=== PATIENT | female | born 1985 | race Caucasian/White ===

== ENCOUNTER 2020-05-09 02:02 | Inpatient (IN) | payer OTHER, SELFPAY ==
[2020-05-09] VITALS (41 sets, daily range): BP systolic 105–131; BP diastolic 46–81; PULSE 53–111; RESP 18; TEMP 36.4–37.2; O2SAT 98–100; BMI 29.7
[2020-05-09 02:41] LABS: Basophils Percent Auto 0.3 % (0.2-1.2); Eosinophils Absolute Auto 0.1 K/mm3 (0-0.3); Eosinophils Percent Auto 0.5 % (0-4.4); Hematocrit 28.8 % (37.0-47.0); Hemoglobin 10.1 g/dL (12.0-15.0); Immature Granulocyte Absolute 0.06 K/mm3 (0.00-0.031); Immature Granulocyte Percent A 0.6 % (0-0.5); Lymphocytes Absolute Auto 1.95 K/mm3 (0.9-3.2); Lymphocytes Percent Auto 20.3 % (18.3-44.2); Mean Corpuscular HGB Conc 35.1 g/dl (32-36); Mean Corpuscular Hemoglobin 32.9 pg (26-34); Mean Corpuscular Volume 93.8 fl (80-100); Mean Platelet Volume 9.4 fl (7.4-10.4); Monocytes Absolute Auto 0.6 K/mm3 (0.1-0.6); Monocytes Percent Auto 6.1 % (2.6-8.5); Neutrophils Absolute Auto 6.9 K/mm3 (1.3-6.7); Neutrophils Percent Auto 72.2 % (45.5-73.1); Platelet Count Result 283 k/mm3 (150-375); Red Blood Count 3.07 M/mm3 (4.2-5.4); Red Cell Distribution Width 13.1 % (11.5-14.5); White Blood Count 9.6 K/mm3 (4.5-10.0)
[2020-05-09] MEDS: LACTATED RINGERS 1,000 ML 125 ML IV CONT ×2 (02:42→03:36)
[2020-05-09] MEDS: AMPICILLIN 2 GM/NS 100 ML 2 GM/100 ML BAG IVPB (02:42)
--- NOTE | 2020-05-09 03:17 | WPDANESEPP ---
Anes - Eval Pre Procedure Procedure: Labor epidural Date/Time: 05/09/20 03:17 Surgeon: Maureen Preop Diagnosis: Abd pain with contractions Pre Op Diagnosis: Contractions Patient Data Age: 34 Gender: F Height: 5 ft 3 in Weight: 76 kg Last Vital Signs Pulse 82 05/09/20 03:16 BP 121/66 05/09/20 03:16 Pulse Ox 98 05/09/20 03:17 Allergies Allergy/AdvReac Type Severity Reaction Status Date / Time ziprasidone Allergy Intermediate Swelling Verified 04/20/19 12:33 of Lip/Tongue/Throat Home Medications Medication Instructions Recorded Confirmed Type albuterol sulfate [Proventil HFA] 2 puff INHALATION QIDRT PRN 30 04/18/19 05/09/20 Rx Days gm buprenorphine HCl [Subutex] 16 mg SUBLINGUAL BID 05/09/20 05/09/20 History Laboratory Tests 05/09/20 05/09/20 05/09/20 02:33 02:33 02:33 WBC 9.6 K/mm3 K/mm3 (4.5-10.0) RBC 3.07 M/mm3 L M/mm3 (4.2-5.4) Hgb 10.1 g/dL L g/dL (12.0-15.0) Hct 28.8 % L % (37.0-47.0) MCV 93.8 fl fl (80-100) MCH 32.9 pg pg (26-34) MCHC 35.1 g/dl g/dl (32-36) RDW 13.1 % % (11.5-14.5) Plt Count 283 k/mm3 k/mm3 (150-375) MPV 9.4 fl fl (7.4-10.4) Immature Gran % (Auto) 0.6 % H % (0-0.5) Neut % (Auto) 72.2 % % (45.5-73.1) Lymph % (Auto) 20.3 % % (18.3-44.2) [place] % (Auto) 6.1 % % (2.6-8.5) Eos % (Auto) 0.5 % % (0-4.4) Baso % (Auto) 0.3 % % (0.2-1.2) Lymph # (Auto) 1.95 K/mm3 K/mm3 (0.9-3.2) [place] # (Auto) 0.6 K/mm3 K/mm3 (0.1-0.6) Eos # (Auto) 0.1 K/mm3 K/mm3 (0-0.3) Baso # (Auto) 0.0 K/mm3 K/mm3 (0.0-0.1) Abs Immat Gran (auto) 0.06 K/mm3 H K/mm3 (0.00-0.031) Absolute Neuts (auto) 6.9 K/mm3 H K/mm3 (1.3-6.7) Absolute Nucleated RBC 0.0 K/mm3 K/mm3 (0.0-0.012) Nucleated RBC % 0.0 % % (0.0-0.2) RPR Pending Hep Bs Antigen HIV 1&2 Ab/P24 Ag 4thGn Pending Rubella IgG Antibody 05/09/20 05/09/20 02:33 02:33 WBC RBC Hgb Hct MCV MCH MCHC RDW Plt Count MPV Immature Gran % (Auto) Neut % (Auto) Lymph % (Auto) [place] % (Auto) Eos % (Auto) Baso % (Auto) Lymph # (Auto) [place] # (Auto) Eos # (Auto) Baso # (Auto) Abs Immat Gran (auto) Absolute Neuts (auto) Absolute Nucleated RBC Nucleated RBC % RPR Hep Bs Antigen Pending HIV 1&2 Ab/P24 Ag 4thGn Rubella IgG Antibody Pending Patient hx anesthesia problems: none Family hx anesthesia problems: none PMFSH Past Medical History Medical History Asthma Drug abuse Hepatitis C Heroin abuse Smoker Social History Social History Smoking packs per day: 1 Smoking cigarettes per day: 20.0 Years smoked: 20 Smoking pack-years: 20.00 Smoking status: Current every day smoker Tobacco type: cigarettes Second hand tobacco smoke exposure: Yes Substance use: current Other substance usage details: user for 10 years Gender identity (if verbalized by the patient): Female Spiritual care concerns: No Exam Day of Procedure 05/09/20 03:17 Patient weight: overweight Heart: regular rate and rhythm Airway: Mallampati scale class III and other (poor dentition throughout) Neurological: alert and oriented
--- NOTE | 2020-05-09 03:23 | LDADM ---
This patient, Chela Fischer, was admitted to Labor/Delivery/Recovery 108 on 05/09/20 at 02:17. Plans for labor, pain management and were discussed with patient. Patient/family oriented to hospital policies and general routines including ID bracelet, bed and alarms, visiting hours, pain management, procedures, bathroom and other care routines, personal items, smoking policy, room service/diet and guest tray routines, infant security routines, and visiting hours. Patient/Family are encouraged to report perceived risks to care and to ask questions if they do not understand what they are told or what they should do. See OBIX for further documentation.
[2020-05-09] MEDS: OXYTOCIN 30 UNITS/NS 500 ML 30 UNITS/500 ML BAG 999 UNITS IV CONT (04:00)
--- NOTE | 2020-05-09 04:15 | WPDHPUPDATE1 ---
History and Physical Update Update Date/Time: 05/09/20 04:15 History and Physical has been reviewed, including an updated exam of the patient. There are NO changes in the patient's condition. Risks, benefits, and alternatives have been discussed and questions answered. Patient agrees to proceed with procedure.
--- NOTE | 2020-05-09 04:15 | WPDOBADMIT ---
Obstetrics - Admit Note Admission Note: record reviewed. No pertinent additions to the history and/or any subsequent changes in the physical findings that are not consistent with the expected course of the were found. Additions to the history and/or subsequent changes in the physical findings foll 34-year-old 0 para 303 now 4 female presents as a walk-in patient. She is receiving care from [place] due to drug use and Subutex to medication. Records have been obtained. Presents with ruptured membranes early labor at 36 weeks. Will labor patient initiate GBS protocol. Pediatrics will be at the delivery due to history of drug use. Further plan based on obstetrical indications. None.
--- NOTE | 2020-05-09 04:18 | PM.OBPRVD ---
OB - Delivery Note Procedure events: Labor < 37 Weeks and Meconium Stained Fluid Route of delivery: Episiotomy description: None Laceration Description: None Specimen: Yes Estimated blood loss (mL): 100 Anesthesia type: Epidural Disposition: floor Narrative: Patient prepped and draped. Delivery without difficulty with pediatrics in attendance. Placenta delivered spontaneously and intact. Cervix vagina vulva were inspected with no lacerations or tears. Uterus was well contracted and not bleeding. Baby Weeks of gestation at delivery: 36 Infant gender: Male Weight (pounds): 6 Weight (ounces): 6
[2020-05-09 04:31] LABS: Hepatitis B Surface Antigen Negative (Negative)
[2020-05-09 04:35] LABS: Amphetamine Screen Urine Negative (Negative); Barbiturate Screen Urine Negative (Negative); Benzodiazepines Screen Urine Negative (Negative); Cannabinoid Screen Urine Negative (Negative); Cocaine Screen Urine Negative (Negative); Methadone Screen Urine Negative (Negative); Opiate Screen Urine Negative (Negative); Phencyclidine Screen Urine Negative (Negative)
[2020-05-09] MEDS: OXYTOCIN 30 UNITS/NS 500 ML 30 UNITS/500 ML BAG 125 UNITS IV CONT (04:37)
[2020-05-09 04:41] LABS: Rubella IgG Antibody 29.3 IU/ML
[2020-05-09 05:30] LABS: HIV 1/2 Ab P24 Ag Result Negative (Negative)
[2020-05-09 07:02] LABS: Rapid Plasma Reagin Non-Reactive (NonReactive)
--- NOTE | 2020-05-09 07:50 | PC.NURSE ---
Patient transferred to post room #292 via wheelchair from labor and delivery. Oriented to unit, room, information board, rooming in, admission packet and security measures. Patient verbalizes understanding.
[2020-05-09] MEDS: IBUPROFEN 600 MG TABLET PO (14:06)
--- NOTE | 2020-05-09 14:18 | PCCCNOTE ---
Care Coordination Consult Met with pt. and KEE Adams. This is pt. and Bryan's fourth child. They have a 7 year old, 3 year old, and 1 year old. Per pt. other children are being cared for by her mother, Faby. Pt. and Bryan report they are just visiting the area. However they also report they are thinking of relocating here at discharge. Pt. is aware she tested negative for all substances upon admission. Pt. reports a long history of heroin use. Denies any current use at this time. Reports she has been taking Subutex and getting care through [facility]. Per nursing records are on chart. Baby boy was transferred to [facility] in [place]. Call to [employer] Delivery Driver Marta Maya @ [phone] who is aware of above information. Pt. does report past [facility] history but declines any open cases at this time. An online report was submitted to [facility] with report # [id number].
--- NOTE | 2020-05-09 17:00 | PC.NURSE ---
Patient off the unit frequently today because she went outside to smoke. Patient aware that should she feel lightheaded or dizzy she needs to return to her room and alert the RN.
[2020-05-10 05:26] LABS: Hematocrit 26.3 % (37.0-47.0); Hemoglobin 8.8 g/dL (12.0-15.0)
--- NOTE | 2020-05-10 07:30 | P.DS_ITS ---
DS: Admitting Diagnosis Admitting Diagnosis Admitting Diagnosis: Contractions OB - DS: Summary OB Procedures : None OB Procedures Intrapartum: Spontaneous Vag Delivery OB Procedures: : None Time Spent with Patient Time attestation: Total time spent providing and/or coordinating discharge services: DS: Data Data Completed and Pending Labs on day of discharge: Labs from last 24 hours 05/10/20 04:14 Hgb 8.8 L Hct 26.3 L Discharge Plan Discharge Discharging Clinician: Leon Reddy Patient Disposition: Home, Self-Care Activity: as tolerated Diet: as tolerated Patient Instructions: Antibiotic Form, How to Stop Smoking (DC) Stand Alone Forms: General Discharge Information Follow-up/Referrals: Leon Reddy MD [Physician] - 3 Weeks Discharge Medications: New ibuprofen 600 mg Tablet 600 mg PO Q6H PRN (Reason: Cramping) Qty: 20 RF: 0 Continued albuterol sulfate [Proventil HFA] 90 mcg/actuation Hfa Aerosol Inhaler 2 puff inhalation QIDRT PRN (Reason: Shortness Of Breath) 30 Days RF: 0 buprenorphine HCl [Subutex] 8 mg Tablet, Sublingual 16 mg SUBLINGUAL BID RF: 0 Date of admission: 05/09/20 02:17 Primary Care Provider: PHYSICIAN,MEDICAL PROGRAM SPECIALIST Admitting Provider: Leon Reddy Attending physician on admission: Leon Reddy Condition: Stable
[2020-05-10 07:55] VITALS: BP 118/71; PULSE 55; RESP 18; TEMP 37.1; O2SAT 100
--- NOTE | 2020-05-10 11:09 | WPDANLDPN2 ---
Anes-Prog Note L&D Date/Time: 05/10/20 11:09 Comfortable throughout: labor and delivery Neuraxial method: epidural Epidural/Spinal procedure site: clean & non-tender Neuro status: Neuro function grossly intact. Cardiovascular status: normal Respiratory status: normal Airway patency: baseline Mental status: baseline Post-Op hydration status: normal Vital Signs: Last Vital Signs Temp 36.5 C 05/09/20 20:00 Pulse 57 L 05/09/20 20:00 Resp 18 05/09/20 20:00 BP 105/60 05/09/20 20:00 Pulse Ox 100 05/09/20 20:00 Pain score (VAS): 3 Post-procedural complaints: none Patient feedback: Patient satisfied with anesthetic care.
[2020-05-10] MEDS: POLYSACCHARIDE IRON COMPLEX 150 MG CAPSULE PO (11:48)
[2020-05-10] MEDS: IBUPROFEN 600 MG TABLET PO (11:49)
== END 2020-05-10 14:35 | disposition home or self-care (01) | DRG 560 ==
LOC: ANHLDR 03:19 → ANHOB2 08:04
PROVIDERS: Admitting Provider Obstetrics & Gynecology; Visit Provider Obstetrics & Gynecology
DX: O62.3 Precipitate labor (principal); Z37.0 Single live birth; Z3A.36 36 weeks gestation of pregnancy; O60.14X0 Preterm labor third trimester with preterm delivery third trimester, not applicable or unspecified; O99.52 Diseases of the respiratory system complicating childbirth; J45.909 Unspecified asthma, uncomplicated; O77.0 Labor and delivery complicated by meconium in amniotic fluid; F17.210 Nicotine dependence, cigarettes, uncomplicated; O98.52 Other viral diseases complicating childbirth; B19.20 Unspecified viral hepatitis C without hepatic coma; O99.334 Smoking (tobacco) complicating childbirth; O69.81X0 Labor and delivery complicated by cord around neck, without compression, not applicable or unspecified
CPT/HCPCS: 36415; 80307; 84112; 85014; 85018; 85025; 86592; 86703; 86762; 86850; 86900; 86901; 87340; A9270; G0432; J0290; J2590; J2795; J7120

== ENCOUNTER 2020-05-18 12:45 | Emergency (ER) | payer OTHER, SELFPAY ==
[2020-05-18 12:49] VITALS: BP 121/74; PULSE 97; RESP 17; TEMP 36.3; O2SAT 93
--- NOTE | 2020-05-18 13:36 | ED.GENADULT ---
HPI - General Adult General Chief complaint: Unspecified Stated complaint: Possible Bladder Prolapse, Tooth Pain Time Seen by Provider: 05/18/20 12:57 Source: patient Mode of arrival: ambulatory Limitations: no limitations History of Present Illness HPI narrative: This is a 34 year old female that presents to the ER for possible prolapse. Reports she coughed and suddenly felt a bulge in her vulva. Reports pain to the area. She recently had a vaginal delivery with Dr. Reddy about a week ago. Also reports some irritation on the inside of her mouth on the right side that she noted today. Denies fever, abdominal pain or dysuria. Related Data Home Medications Medication Instructions Recorded Confirmed buprenorphine HCl 16 mg SUBLINGUAL BID 05/09/20 05/09/20 Allergies Allergy/AdvReac Type Severity Reaction Status Date / Time ziprasidone Allergy Intermediate Swelling Verified 05/18/20 12:52 of Lip/Tongue/Throat Review of Systems Review of Systems: Narrative: CONSTITUTIONAL: Denies fever GASTROINTESTINAL: Denies abdominal pain, nausea, vomiting GENITOURINARY: Denies dysuria All systems reviewed & are unremarkable except as noted in HPI and below PMFSH Past Medical History Medical History Asthma Drug abuse Hepatitis C Heroin abuse Smoker Social History Social History Smoking packs per day: 1 Smoking cigarettes per day: 20.0 Years smoked: 20 Smoking pack-years: 20.00 Smoking status: Current every day smoker Tobacco type: cigarettes Second hand tobacco smoke exposure: Yes Substance use: former Other substance usage details: user for 10 years Gender identity (if verbalized by the patient): Female Spiritual care concerns: No Exam Narrative: Exam Narrative: GENERAL: Well-appearing, well-nourished, and in no acute distress. HEAD: Normocephalic, atraumatic. EYES: EOMI. ENT: Inside of right cheek with mild irritation, appears patient may have bitten the area, no erythema or fluctuance to suggest infection CHEST: Clear to auscultation. No respiratory distress. No wheezes rales or rhonchi HEART: Regular rate and rhythm. No murmur heard. Normal peripheral pulses. ABDOMEN: Soft, nontender, nondistended, normal active bowel sounds. EXTREMITIES: Normal range of motion. No edema. SKIN: Warm, dry, no rash. NEURO: No focal deficits. Alert and oriented x3. PSYCH: Normal mood and affect PELVIC: Right side of vulva with large hematoma. Small to moderate amount of blood in the vaginal vault, cervix appears normal postdelivery Course Vital Signs Vital signs: Vital Signs Temperature 97.4 F L 05/18/20 12:49 Pulse Rate 97 05/18/20 12:49 Respiratory Rate 17 05/18/20 12:49 Blood Pressure 121/74 05/18/20 12:49 Pulse Oximetry 93 05/18/20 12:49 Temperature 97.4 F L 05/18/20 12:49 Pulse Rate 97 05/18/20 12:49 Respiratory Rate 17 05/18/20 12:49 Blood Pressure 121/74 05/18/20 12:49 Pulse Oximetry 93 05/18/20 12:49 Medical Decision Making MDM Narrative Medical decision making narrative: Patient presents to the emergency department for swelling of the vulva. On exam consistent with a hematoma. Patient was a difficult stick and multiple attempts to draw blood were done. Patient ended up eloping after I evaluated her before any further work-up was done Vital Signs Vital Signs: Vital Signs Temperature 97.4 F L 05/18/20 12:49 Pulse Rate 97 05/18/20 12:49 Respiratory Rate 17 05/18/20 12:49 Blood Pressure 121/74 05/18/20 12:49 Pulse Oximetry 93 05/18/20 12:49 Temperature 97.4 F L 05/18/20 12:49 Pulse Rate 97 05/18/20 12:49 Respiratory Rate 17 05/18/20 12:49 Blood Pressure 121/74 05/18/20 12:49 Pulse Oximetry 93 05/18/20 12:49 Critical Care Time Critical Care Time Critical Care Time: No Discharge Plan Discharge Clinical Impression: Hematoma, vulva Marie
--- NOTE | 2020-05-18 14:20 | PC.NURSE ---
patient brought back to ED room 10 with c/o bladder prolapse . see triage note. no change in patient's condition since triage completed. assessments documented. provider has seen patient. Dr. Martin also in room for exam. this RN present. patient had vaginal 1 week ago. states her baby was 3 weeks premature and is hospitalized at [facility]. alert. oriented. denies vaginal bleeding. waiting for further orders from provider. call light in reach. denies needs.
--- NOTE | 2020-05-18 15:15 | PC.NURSE ---
patient is difficult stick. ED techs unable to draw labs. this RN to bedside. attempt x 2 for labs or IV access. unable to advance catheters due to scar tissue in arms. patient aware of orders and treatment plan. will discuss with charge nurse or for ultrasound IV. resting on stretcher. denies needs. denies pain.
--- NOTE | 2020-05-18 15:50 | PC.NURSE ---
mineral surveying technician at bedside. unable to get labs. discussed with Jay SERRATO.
--- NOTE | 2020-05-18 16:05 | PC.NURSE ---
patient seen leaving this ED by broadcast operations technician. patient did not have IV access.
== END 2020-05-18 16:26 | disposition left against medical advice (07) ==
PROVIDERS: Emergency Provider Emergency Medicine; Referring Provider Family Medicine
DX: S30.23XA Contusion of vagina and vulva, initial encounter (principal); X50.0XXA Overexertion from strenuous movement or load, initial encounter; F17.210 Nicotine dependence, cigarettes, uncomplicated; J45.909 Unspecified asthma, uncomplicated
CPT/HCPCS: 99281

== ENCOUNTER 2021-11-10 06:12 | Inpatient (IN) | payer OTHER, SELFPAY ==
[2021-11-10] VITALS (17 sets, daily range): BP systolic 108–131; BP diastolic 53–81; PULSE 51–79; RESP 16–18; TEMP 36.4–37; O2SAT 97–100
--- NOTE | 2021-11-10 06:12 | LDADM ---
This patient, Chela Fischer, was admitted to Labor/Delivery/Recovery 106 on 11/10/21 at 06:12. Plans for labor, pain management and were discussed with patient. Patient/family oriented to hospital policies and general routines including ID bracelet, bed and alarms, visiting hours, pain management, procedures, bathroom and other care routines, personal items, smoking policy, room service/diet and guest tray routines, infant security routines, and visiting hours. Patient/Family are encouraged to report perceived risks to care and to ask questions if they do not understand what they are told or what they should do. See OBIX for further documentation.
[2021-11-10] MEDS: OXYTOCIN 10 UNITS/ML VIAL (06:23)
--- NOTE | 2021-11-10 06:52 | PM.IMHP ---
H&P: HPI History of Present Illness Date/Time: 11/10/21 06:52 Chief Complaint: intrauterine no care opioid druge abuse hepatitis C Narrative: 36 yo who presents in labor. Pt had no care in this . Upon arrival to the hospital she was found to be complete and breech. Pt is unknown gestational age. Pt precipitously delivered a male infant in footling position. Pt states her last opioid use was a few days ago. Pt is unaware what month it is currently. Pt also was a poor historian of her medical history. Pt reports a history of IVDU but states she stopped using a while ago as she could no longer find any veins. Pt also contracted Hepatitis C. Pt cannot recall the last time she saw a medical provider. PMFSH Past Medical History Medical History Asthma Drug abuse Hepatitis C Heroin abuse Smoker Social History Social History Smoking packs per day: 1 Smoking cigarettes per day: 20.0 Years smoked: 20 Smoking pack-years: 20.00 Smoking status: Current every day smoker Tobacco type: cigarettes Second hand tobacco smoke exposure: Yes Substance use: former Other substance usage details: user for 10 years Gender identity (if verbalized by the patient): Female Spiritual care concerns: No Meds Home Medications and Allergies Home Medications Medication Instructions Recorded Confirmed Type albuterol sulfate 90 mcg/actuation 2 puff inhalation QIDRT PRN 04/18/19 05/09/20 Rx aerosol inhaler (Proventil HFA) Shortness Of Breath 30 days buprenorphine HCl 8 mg sublingual 16 mg sublingual BID 05/09/20 05/09/20 History tablet ibuprofen 600 mg tablet 600 mg PO Q6H PRN Cramping #20 tabs 05/10/20 Rx Allergies Allergy/AdvReac Type Severity Reaction Status Date / Time ziprasidone Allergy Intermediate Swelling Verified 05/18/20 12:52 of Lip/Tongue/Throat Exam Const: General: no acute distress, confusion, intoxicated appearing, lethargic and poor hygiene Nutritional Appearance: malnourished Limitations: other limitations (Opioid use) Resp: Effort & Inspection: normal respiratory effort and able to speak in complete sentences Cardio: Rate: regular rate GI: Inspection: scar and striae : OB/external & speculum: external exam normal and vaginal laceration (superficial vaginal lacerations) Other: Pt was s/p precipitous delivery. Pt had delivered the placenta. No active bleeding noted. No perineal lacerations Skin: General skin exam: scars and striae Lesions: lesion noted (multiple skin lesions noted from active drug use) Neuro: General: No oriented to time Cognition (Neuro): abnormal cognition Extrem: General: capillary refill delayed, clubbing, edema, pedal edema and No vascular access Psych: Appearance: poorly kempt Assessment and Plan Assessment and plan (1) Heroin abuse: Code(s): F11.10 - Opioid abuse, uncomplicated Status: Acute Assessment and Plan: pt reports last opioid use was a few days ago. She cannot recall the specific day. Pt is unaware what day it is or what month (2) Hepatitis C: Code(s): B19.20 - Unspecified viral hepatitis C without hepatic coma Status: Chronic Assessment and Plan: pt reports history of hepatitis C will draw hepatitis panel will check Hepatitic C viral load and liver enzymes (3) Asthma: Code(s): J45.909 - Unspecified asthma, uncomplicated Status: Chronic (4) Supervision of high risk due to social problems: Code(s): O09.70 - Supervision of high risk due to social problems, unspecified trimester Status: Acute Assessment and Plan: No care Pt is a will draw labs Pt precipitously delivered in footling breech position to a term appearing male infant
[2021-11-10 06:53] LABS: Basophils Percent Auto 0.3 % (0.2-1.2); Eosinophils Absolute Auto 0.1 K/mm3 (0-0.3); Eosinophils Percent Auto 1.1 % (0-4.4); Hematocrit 34.6 % (37.0-47.0); Hemoglobin 11.3 g/dL (12.0-15.0); Immature Granulocyte Absolute 0.04 K/mm3 (0.00-0.031); Immature Granulocyte Percent A 0.5 % (0-0.5); Lymphocytes Absolute Auto 2.03 K/mm3 (0.9-3.2); Lymphocytes Percent Auto 25.9 % (18.3-44.2); Mean Corpuscular HGB Conc 32.7 g/dl (32-36); Mean Corpuscular Volume 91.8 fl (80-100); Mean Platelet Volume 10.2 fl (7.4-10.4); Monocytes Absolute Auto 0.7 K/mm3 (0.1-0.6); Monocytes Percent Auto 8.6 % (2.6-8.5); Neutrophils Percent Auto 63.6 % (45.5-73.1); Platelet Count Result 256 k/mm3 (150-375); Red Blood Count 3.77 M/mm3 (4.2-5.4); Red Cell Distribution Width 12.3 % (11.5-14.5); White Blood Count 7.8 K/mm3 (4.5-10.0)
[2021-11-10] MEDS: OXYTOCIN 30 UNITS/NS 500 ML 30 UNITS/500 ML BAG 125 UNITS IV CONT (07:41)
[2021-11-10] MEDS: IBUPROFEN 600 MG TABLET PO (08:32)
[2021-11-10 08:35] LABS: Rubella IgG Antibody 37.9 IU/ML
[2021-11-10 08:40] LABS: HIV 1/2 Ab P24 Ag Result Negative (Negative)
[2021-11-10 09:44] LABS: Hepatitis B Surface Antigen Negative (Negative)
[2021-11-10 10:49] LABS: Amphetamine Screen Urine Negative (Negative); Barbiturate Screen Urine Negative (Negative); Benzodiazepines Screen Urine Positive (Negative); Cannabinoid Screen Urine Negative (Negative); Cocaine Screen Urine Negative (Negative); Methadone Screen Urine Negative (Negative); Opiate Screen Urine Negative (Negative); Phencyclidine Screen Urine Negative (Negative)
--- NOTE | 2021-11-10 14:13 | PCCCNOTE ---
Addendum entered by Shannon Pugh, [facility] 11/11/21 08:06: Spoke to RN. Pt. likely discharge today. Spoke to [facility] worker, Judy at [phone]. She will be present today to provide needed paperwork for protective custody of . [place] will likely not discharge today. Addendum entered by Tarah Magallon, [facility] 11/10/21 15:55: Spoke with Vi from [facility] Ra [phone] who reports Judy with [facility] [phone] will be here at [place] in 10 minutes to see mom and baby. Vi states they do plan to take custody of the baby. ROJELIO Guzmán aware. Addendum entered by Tarah Magallon, [facility] 11/10/21 15:23: Recvd email from [facility] that states: Thank you for submitting an online report (reference number [id number]) to the [facility] Child Abuse/Neglect Hotline. Your information has been reviewed and assessed by a Clerical Stock Inspector. A child abuse/neglect investigation will be initiated as a result of the information you provided. An Surgical Nurse Practitioner will make an attempt to see and assess the child(shelby) within the next 24 hours. ROJELIO Guzmán aware. Original Note: Care Coordination: Pt. tested positive for benzo's during urine drug screen. Pt. reports history of IV drug use. Baby's meconium/umbilical cord drug screen is pending. Baby is being monitored for any withdrawal symptoms. ROJELIO Guzmán reports no signs of withdrawal as of now. Pt. states she has had no care during this and arrived to the hospital within 20 minutes of baby being delivered by a nurse. Pt. reports having prior involvement with [facility] and states she has four other children who she does not have custody of. Pt's spouse/FOB Bryan at bedside. Pt. reports she is aware she likely won't leave the hospital with this baby. Online [facility] report made #[id number].
--- NOTE | 2021-11-10 14:42 | PM.OBPNVD ---
OB - PN: Subj Subjective Date/time seen: 11/10/21 14:42 Narrative: Pt is PPD from of suspected term baby in breech position. Pt has no care and is an active opioid user. Pt also has Hepatitis C. Pt desires permanent sterilization. Pt has signed permanent sterilization consent paperwork but the procedure cannot be completed until 72 hrs. Counseled pt on IUD placement for contraception as patient is a risk for non-compliance. Pt consented to placement of IUD. OB - PN: Obj Data Labs CBC & Chem 7: 11/10/21 06:44 Labs: Laboratory Results - last 24 hr 11/10/21 11/10/21 11/10/21 06:44 07:34 07:34 WBC 7.8 RBC 3.77 L Hgb 11.3 L Hct 34.6 L MCV 91.8 MCH 30.0 MCHC 32.7 RDW 12.3 Plt Count 256 MPV 10.2 Immature Gran % (Auto) 0.5 Neut % (Auto) 63.6 Lymph % (Auto) 25.9 [place] % (Auto) 8.6 H Eos % (Auto) 1.1 Baso % (Auto) 0.3 Lymph # (Auto) 2.03 [place] # (Auto) 0.7 H Eos # (Auto) 0.1 Baso # (Auto) 0.0 Abs Immat Gran (auto) 0.04 H Absolute Neuts (auto) 5.0 Absolute Nucleated RBC 0.0 Nucleated RBC % 0.0 Urine Opiates Screen Urine Methadone Screen Ur Barbiturates Screen Ur Phencyclidine Scrn Ur Amphetamine Screen U Benzodiazepines Scrn Urine Cocaine Screen U Cannabinoids Screen Hep Bs Antigen HIV 1&2 Ab/P24 Ag 4thGn Rubella IgG Antibody 37.9 Blood Type O Positive Antibody Screen Negative 11/10/21 11/10/21 11/10/21 07:34 07:34 10:02 WBC RBC Hgb Hct MCV MCH MCHC RDW Plt Count MPV Immature Gran % (Auto) Neut % (Auto) Lymph % (Auto) [place] % (Auto) Eos % (Auto) Baso % (Auto) Lymph # (Auto) [place] # (Auto) Eos # (Auto) Baso # (Auto) Abs Immat Gran (auto) Absolute Neuts (auto) Absolute Nucleated RBC Nucleated RBC % Urine Opiates Screen Negative Urine Methadone Screen Negative Ur Barbiturates Screen Negative Ur Phencyclidine Scrn Negative Ur Amphetamine Screen Negative U Benzodiazepines Scrn Positive A Urine Cocaine Screen Negative U Cannabinoids Screen Negative Hep Bs Antigen Negative HIV 1&2 Ab/P24 Ag 4thGn Negative Rubella IgG Antibody Blood Type Antibody Screen OB - PN A/P Assessment and Plan (1) Supervision of high risk due to social problems: Code(s): O09.70 - Supervision of high risk due to social problems, unspecified trimester Status: Acute (2) Heroin abuse: Code(s): F11.10 - Opioid abuse, uncomplicated Status: Acute (3) Hepatitis C: Code(s): B19.20 - Unspecified viral hepatitis C without hepatic coma Status: Chronic (4) Asthma: Code(s): J45.909 - Unspecified asthma, uncomplicated Status: Chronic (5) Encounter for IUD insertion: Code(s): Z30.430 - Encounter for insertion of intrauterine contraceptive device Status: Acute Assessment and Plan: Pt desires permanent sterilization pt signed consent for bilateral tubal ligation pt has poor social situation and is active opioid user Plan is for patient to return to office to schedule tubal ligation Offered pt IUD placement in the interim as patient is a high risk for non-compliance. pt consented and agreed to IUD placement Pt placed in dorso-lithotomy placement. Cervix was patulous after delivery. IUD inserted to the level of the fundus. IUD strings cut approximately 3cm from cervix. Pt tolerated procedure well. Time Spent With Patient Time: Total time spent is greater than 50% in coordination of care (as documented) at patient's floor/unit and/or counseling patient:
--- NOTE | 2021-11-10 14:47 | PC.NURSE ---
Pt taken to room 104 for placement of IUD by Dr. Hanks. This RN at bedside while it was placed. Pt then taken back to room 283 and report given to senior front end engineer Arielle.
--- NOTE | 2021-11-10 16:18 | OBPPTRN ---
1005-Patient transferred to post room #283 via wheelchair. Support person present. Oriented to unit, room, information board, rooming in, admission packet and security measures. Patient verbalizes understanding.
--- NOTE | 2021-11-10 17:30 | PC.NURSE ---
1615-[facility] legal administrative secretary arrived on floor to meet with patient regarding taking custody of baby; will not be taking protective custody of baby until discharge at this time unless patient signs out AMA.
--- NOTE | 2021-11-10 17:45 | PC.NURSE ---
1400-Offered patient Nicotine patch; patient refused; 1730-offered Nicotine patch again; patient refused against RN's recommendation.
[2021-11-10] MEDS: NICOTINE (*PBKC) 14 MG PATCH 1 PATCH TRANSDERM (19:20)
[2021-11-11] MEDS: IBUPROFEN 600 MG TABLET PO (07:13)
[2021-11-11 07:37] VITALS: BP 125/79; PULSE 83; RESP 16; TEMP 37; O2SAT 100
--- NOTE | 2021-11-11 08:02 | PM.OBPNVD ---
OB - PN: Subj Subjective Date/time seen: 11/11/21 08:02 Patient comments: no complaints, pain well controlled and tolerating diet [place] feeding status: exclusively breast feeding Narrative: patient doing well this AM. No complaints. Pain is well controlled. She reports minimal bleeding. She is ambulating and voiding without difficulty. She is tolerating PO. She denies N/V, fever, chills. OB - PN: Obj Data Labs CBC & Chem 7: 11/10/21 06:44 Labs: Laboratory Results - last 24 hr 11/10/21 11/10/21 11/10/21 07:34 07:34 07:34 Urine Opiates Screen Urine Methadone Screen Ur Barbiturates Screen Ur Phencyclidine Scrn Ur Amphetamine Screen U Benzodiazepines Scrn Urine Cocaine Screen U Cannabinoids Screen Hep Bs Antigen Negative HIV 1&2 Ab/P24 Ag 4thGn Rubella IgG Antibody 37.9 Blood Type O Positive Antibody Screen Negative 11/10/21 11/10/21 07:34 10:02 Urine Opiates Screen Negative Urine Methadone Screen Negative Ur Barbiturates Screen Negative Ur Phencyclidine Scrn Negative Ur Amphetamine Screen Negative U Benzodiazepines Scrn Positive A Urine Cocaine Screen Negative U Cannabinoids Screen Negative Hep Bs Antigen HIV 1&2 Ab/P24 Ag 4thGn Negative Rubella IgG Antibody Blood Type Antibody Screen OB - PN A/P Plan day: 1 Plan: routine care Comments: patient doing well H/H pending prental labs and Hep C viral load pending IV access removed will hold infant circumcision due to withdrawal symptoms Pt aware that [facility] will be taking custody of the child continue routine care Time Spent With Patient Time: Total time spent is greater than 50% in coordination of care (as documented) at patient's floor/unit and/or counseling patient: Time with patient: less than 15 minutes Review of Systems Review of Systems: All systems reviewed & are unremarkable except as noted in HPI and below Exam Const: General: comfortable and no acute distress Resp: Effort & Inspection: normal respiratory effort Cardio: Rate: regular rate GI: GI Palp: Yes Soft to palpation and No Tenderness to palpation present (GI) Auscultation: normal bowel sounds Other: fundus firm and below umbilicus. Psych: Affect: normal affect
--- NOTE | 2021-11-11 08:04 | PM.OBDSVD ---
DS: Admitting Diagnosis Discharge Date 11/11/21 Admitting Diagnosis intrauterine no care opioid abuse hepatitis C tobacco use DS: Discharge Diagnosis Discharge Diagnosis (1) Encounter for IUD insertion: Code(s): Z30.430 - Encounter for insertion of intrauterine contraceptive device Status: Acute (2) Supervision of high risk due to social problems: Code(s): O09.70 - Supervision of high risk due to social problems, unspecified trimester Status: Acute (3) Heroin abuse: Code(s): F11.10 - Opioid abuse, uncomplicated Status: Acute (4) Hepatitis C: Code(s): B19.20 - Unspecified viral hepatitis C without hepatic coma Status: Chronic OB - DS: Summary OB Procedures : None and Other (no care) OB Procedures Intrapartum: Spontaneous Vag Delivery and Breech extraction OB Procedures: : None and Other (IUD placement) Peripartum Data Delivery Method: Natural Vaginal Laceration Description: None Episiotomy description: None Procedures: IUD placement Status at Discharge Functional status at discharge: independent ambulation Overall status at discharge: patient is back to baseline Time Spent with Patient Time attestation: Total time spent providing and/or coordinating discharge services: Time spent: Less than 30 minutes Exam Const: General: comfortable and no acute distress Resp: Effort & Inspection: normal respiratory effort Auscultation: clear to auscultation bilaterally Cardio: Rate: regular rate GI: GI Palp: Yes Soft to palpation Auscultation: normal bowel sounds Other: Fundus firm below umbilicus Psych: Appearance: grossly normal Mental Status: mental status grossly normal Affect: normal affect DS: Data Data Completed and Pending Pending studies at discharge: Pending at discharge 11/10/21 06:24 Surgical [PTH] Routine Labs on day of discharge: Labs from last 24 hours 11/11/21 11/10/21 11/10/21 04:14 10:02 07:34 Hgb Pending Hct Pending Urine Opiates Screen Negative Urine Methadone Screen Negative Ur Barbiturates Screen Negative Ur Phencyclidine Scrn Negative Ur Amphetamine Screen Negative U Benzodiazepines Scrn Positive A Urine Cocaine Screen Negative U Cannabinoids Screen Negative Hep Bs Antigen HCV RNA (PCR) IUs/ml HCV RNA PCR log IUs/ml HIV 1&2 Ab/P24 Ag 4thGn Negative Rubella IgG Antibody Blood Type Antibody Screen 11/10/21 11/10/21 11/10/21 07:34 07:34 07:34 Hgb Hct Urine Opiates Screen Urine Methadone Screen Ur Barbiturates Screen Ur Phencyclidine Scrn Ur Amphetamine Screen U Benzodiazepines Scrn Urine Cocaine Screen U Cannabinoids Screen Hep Bs Antigen Negative HCV RNA (PCR) IUs/ml HCV RNA PCR log IUs/ml HIV 1&2 Ab/P24 Ag 4thGn Rubella IgG Antibody 37.9 Blood Type O Positive Antibody Screen Negative 11/10/21 06:43 Hgb Hct Urine Opiates Screen Urine Methadone Screen Ur Barbiturates Screen Ur Phencyclidine Scrn Ur Amphetamine Screen U Benzodiazepines Scrn Urine Cocaine Screen U Cannabinoids Screen Hep Bs Antigen HCV RNA (PCR) IUs/ml Pending HCV RNA PCR log IUs/ml Pending HIV 1&2 Ab/P24 Ag 4thGn Rubella IgG Antibody Blood Type Antibody Screen Discharge Plan Discharge Discharging Clinician: Zachery Hanks Patient Disposition: Home, Self-Care Activity: as tolerated and pelvic rest Diet: regular Patient Instructions: Antibiotic Form, Vaginal Delivery (DC), Opioid Use Disorder (DC) Stand Alone Forms: General Discharge Information Follow-up/Referrals: Zachery Hanks MD [Physician] - 1 Week Discharge Medications: New acetaminophen [Mapap (acetaminophen)] 325 mg Tablet 650 mg PO Q6H PRN (Reason: Mild Pain (1-3) Or Headache) Qty: 30 0RF ibuprofen 600 mg Tablet 600 mg
[2021-11-11 12:02] LABS: Hematocrit 31.3 % (37.0-47.0); Hemoglobin 10.8 g/dL (12.0-15.0)
[2021-11-11 19:30] VITALS: BP 130/78; PULSE 72; RESP 16; TEMP 36.6; O2SAT 100
[2021-11-12 07:30] VITALS: BP 144/77; PULSE 62; RESP 20; TEMP 36.4
--- NOTE | 2021-11-12 08:08 | P.DS_ITS ---
OB - DS: Summary Time Spent with Patient Time attestation: Total time spent providing and/or coordinating discharge services: DS: Data Data Completed and Pending Pending studies at discharge: Pending at discharge 11/10/21 06:24 Surgical [PTH] Routine Labs on day of discharge: Labs from last 24 hours 11/11/21 11:53 Hgb 10.8 L Hct 31.3 L Discharge Plan Discharge Discharging Clinician: Zachery Hanks Patient Disposition: Home, Self-Care Activity: as tolerated and pelvic rest Diet: regular Patient Instructions: Antibiotic Form, Vaginal Delivery (DC), Opioid Use Dis order (DC) Stand Alone Forms: General Discharge Information Follow-up/Referrals: Zachery Hanks MD [Physician] - 1 Week Discharge Medications: New acetaminophen [Mapap (acetaminophen)] 325 mg Tablet 650 mg PO Q6H PRN (Reason: Mild Pain (1-3) Or Headache) Qty: 30 0RF ibuprofen 600 mg Tablet 600 mg PO Q6H PRN (Reason: Cramping) Qty: 30 0RF No Action No Home Medications Date of admission: 11/10/21 06:12 Primary Care Provider: PHYSICIAN,[employer] Admitting Provider: Zachery Hanks Attending physician on admission: Zachery Hanks Condition: Stable
[2021-11-13 06:26] LABS: Rapid Plasma Reagin Non-Reactive (NonReactive)
--- NOTE | 2021-11-24 15:52 | PCCCNOTE ---
11/24 Received call from Judy [phone] at [facility] requesting Umbilical cord results. Waiting for verification from [employer] and [facility] labs to identify if any substances were found in umbilical cord or not. Per Nancy at [employer], she will have someone reach out to myself or Alice King with care coordination from [facility] to interpret results.
== END 2021-11-12 09:49 | disposition home or self-care (01) | DRG 560 ==
LOC: ANHLDR 06:19 → ANHOB2 10:13
PROVIDERS: Admitting Provider Student in an Organized Health Care Education/Training Program; Visit Provider Student in an Organized Health Care Education/Training Program
DX: O32.8XX0 Maternal care for other malpresentation of fetus, not applicable or unspecified (principal); O62.3 Precipitate labor; O99.324 Drug use complicating childbirth; O98.42 Viral hepatitis complicating childbirth; B19.20 Unspecified viral hepatitis C without hepatic coma; O99.334 Smoking (tobacco) complicating childbirth; F17.210 Nicotine dependence, cigarettes, uncomplicated; Z3A.00 Weeks of gestation of pregnancy not specified; Z37.0 Single live birth; F11.10 Opioid abuse, uncomplicated
CPT/HCPCS: 36415; 80307; 85014; 85018; 85025; 86592; 86703; 86762; 86850; 86900; 86901; 87340; 87522; 88307; A9270; G0432; J2590